=== PATIENT | female | born 1975 | race Caucasian/White ===

== ENCOUNTER 2019-04-10 06:08 | Day surgery (SDC) | payer BC, OTHER ==
[~2019-04-10] VITALS: Ht 160 cm; Wt 71.7 kg
[~2019-04-10 06:08] MED LIST: ALBU8.5H8 IH
[2019-04-10 06:56] VITALS: Ht 160 cm; Wt 71.7 kg
[2019-04-10 07:15] VITALS: BP 122/78; PULSE 75; RESP 16
[2019-04-10] MEDS ORDERED: PROPOFOL 60 ML ONE (07:24)
[2019-04-10] MEDS ORDERED: LIDOCAINE 2% (SDV) 5 ML INJ ONE (07:24)
[2019-04-10] MEDS ORDERED: LIDOCAINE 4% SOLUTION 50 ML BTL ONE (08:10)
[2019-04-10] MEDS ORDERED: PROPOFOL 20 ML ONE (08:35)
[2019-04-10 08:52] VITALS: BP 105/69; RESP 15
[2019-04-10] MEDS ORDERED: MIDAZOLAM 1 MG/ML 2 ML INJ ONE ×2 (09:08→09:09)
[2019-04-10] MEDS ORDERED: FENTAnyl 50 MCG/ML VIAL ONE (09:08)
== END 2019-04-10 15:39 | disposition home or self-care (01) ==
LOC: GIL 06:08
PROVIDERS: ATTEND Internal Medicine Gastroenterology
DX: K29.50 Unspecified chronic gastritis without bleeding (principal); K20.8 Other esophagitis
CPT/HCPCS: 43239; 88305; 88312; J2250; J3010; Z7610

== ENCOUNTER 2019-05-15 08:53 | Day surgery (SDC) | payer OTHER ==
[~2019-05-15] VITALS: Ht 157.5 cm; Wt 69.3 kg
[2019-05-15 09:48] VITALS: Ht 157.5 cm; Wt 69.3 kg
[2019-05-15 10:46] VITALS: BP 117/74; PULSE 72; RESP 32
[2019-05-15] MEDS ORDERED: MIDAZOLAM 1 MG/ML 2 ML INJ ONE ×3 (10:49)
[2019-05-15] MEDS ORDERED: FENTAnyl 50 MCG/ML VIAL ONE (10:50)
[2019-05-15 11:05] VITALS: BP 104/71; PULSE 66; RESP 18
== END 2019-05-15 11:47 | disposition home or self-care (01) ==
LOC: GIL 08:53
PROVIDERS: ATTEND Internal Medicine Gastroenterology
DX: K92.1 Melena (principal); K64.8 Other hemorrhoids
CPT/HCPCS: 45378; 84703; J2250; J3010; Z7610